=== PATIENT | female | born 1950 | race Caucasian/White ===

== ENCOUNTER 2024-12-12 07:36 | Day surgery (SDC) | payer MEDICARE, OTHER ==
[~2024-12-12 07:36] MED LIST: Acetaminophen 325 MG Tab PO SCH; Lactated Ringers 1,000 ML IV SCH; Morphine 8 MG, EPINEPHrine 0.3 MG, Cefuroxime 750 MG, Ketorolac 30 MG, Sodium Chloride ... PRN; Pregabalin 25 MG Cap PO SCH; Sodium Chloride 0.9% 10 ML Syringe FLUSH PRN; Sodium Chloride 0.9% 10 ML Syringe FLUSH SCH; Tranexamic Acid 1,000 MG/10 ML Vial ONE; oxyCODONE ER 10 MG TAB.ER PO SCH
[2024-12-12] MEDS ORDERED: Sodium Chloride 0.9% 100 ML IV ONE (07:37)
[2024-12-12] MEDS ORDERED: Midazolam 1 MG/ML 2 ML SDV ONE (07:52)
[2024-12-12] MEDS: Lactated Ringers 1,000 ML IV SCH (08:10)
[2024-12-12] MEDS: oxyCODONE ER 10 MG TAB.ER PO ONE (08:22)
[2024-12-12] MEDS: Acetaminophen 325 MG Tab PO ONE (08:27)
[2024-12-12] MEDS ORDERED: Pregabalin 25 MG Cap PO ONE (08:30)
[2024-12-12] MEDS: Pregabalin 25 MG Cap PO ONE (08:31)
[2024-12-12] MEDS ORDERED: propofoL 500 MG/50 ML 50 ML ONE (09:09)
[2024-12-12] MEDS ORDERED: ceFAZolin 2 GM Vial ONE (09:09)
[2024-12-12] MEDS ORDERED: Ketorolac 30 MG/ML SDV ONE (09:10)
[2024-12-12] MEDS ORDERED: Ondansetron 4 MG/2 ML SDV ONE (09:10)
[2024-12-12] MEDS ORDERED: Dexamethasone 4 MG/ML 5 ML MDV ONE (09:10)
[2024-12-12] MEDS ORDERED: Ropivacaine 0.5% 5 MG/ML 30 ML SDV ONE (09:40)
[2024-12-12] MEDS ORDERED: dexmedeTOMIDine HCl 200 MCG/2 ML SDV ONE (10:11)
[2024-12-12] MEDS ORDERED: HYDROmorphone 0.5 MG/0.5 ML Syringe IVPUSH PRN (10:13)
[2024-12-12] MEDS ORDERED: Ondansetron 4 MG/2 ML SDV IVPUSH PRN (10:13)
[2024-12-12] MEDS: Morphine 8 MG, EPINEPHrine 0.3 MG, Cefuroxime 750 MG, Ketorolac 30 MG, Sodium Chloride ... PRN (10:47)
[2024-12-12] MEDS: VANCOmycin 1 GM SDV ONE (10:50)
[2024-12-12] MEDS: Tranexamic Acid 1,000 MG/10 ML Vial ONE (10:50)
[2024-12-12] MEDS ORDERED: Lidocaine 1% 4 ML ONE (11:00)
[2024-12-12] MEDS: fentaNYL 100 MCG/2 ML SDV IVPUSH PRN (11:20)
[2024-12-12] MEDS ORDERED: Glycopyrrolate 0.2 MG/ML 2 ML SDV ONE (11:23)
[2024-12-12] MEDS: oxyCODONE 5 MG Tab PO SCH (12:55)
== END 2024-12-12 14:44 | disposition home or self-care (01) ==
LOC: JD.SDS 07:36
PROVIDERS: ATTEND Orthopaedic Surgery
DX: M17.11 Unilateral primary osteoarthritis, right knee (principal); I25.10 Atherosclerotic heart disease of native coronary artery without angina pectoris; G89.18 Other acute postprocedural pain; E78.00 Pure hypercholesterolemia, unspecified; I10 Essential (primary) hypertension; Z87.891 Personal history of nicotine dependence; Z79.899 Other long term (current) drug therapy
CPT/HCPCS: 01402; 64447; 73560-26-RT; 73560-RT; 97110-GP; 97161-GP; 97530-GP; 99100; A9270-GY; C1713; C1776; J0171; J0690; J0697; J1100; J1596; J1885; J2003; J2250; J2272; J2405; J2704; J2795; J3010; J7120